=== PATIENT | female | born 1985 | race Hispanic/Latino ===

== ENCOUNTER 2019-11-10 09:55 | Emergency (ER) | payer OTHER | END 2019-11-10 13:04 | disposition home or self-care (01) | LOC: EDH 09:55 | DX: S16.1XXA Strain of muscle, fascia and tendon at neck level, initial encounter (principal); S29.012A Strain of muscle and tendon of back wall of thorax, initial encounter; J45.909 Unspecified asthma, uncomplicated; Z88.1 Allergy status to other antibiotic agents; V49.49XA Driver injured in collision with other motor vehicles in traffic accident, initial encounter; Y93.89 Activity, other specified; Y92.89 Other specified places as the place of occurrence of the external cause; Y99.8 Other external cause status | CPT/HCPCS: 72040; 81025; 93005 ==

== ENCOUNTER 2021-05-06 11:55 | Emergency (ER) | payer OTHER ==
[~2021-05-06] VITALS: Ht 160 cm; Wt 92.1 kg
[2021-05-06 11:59] VITALS: BP 144/81
[2021-05-06 12:21] LABS: BASOPHILS % (AUTO) 0.3 % (0.0-5.0); EOSINOPHILS % (AUTO) 0.8 % (0.0-8.0); HEMATOCRIT 39.2 % (36-48); LYMPHOCYTES % (AUTO) 28.6 % (21.0-51.0); MEAN CORPUSCULAR HEMOGLOBIN 31.6 pg (27.0-33.0); MEAN CORPUSCULAR HGB CONC 34.7 g/dL (32.0-36.0); MEAN CORPUSCULAR VOLUME 91.2 fL (79-99); NEUTROPHILS % (AUTO) 65.1 % (40.0-77.0); PLATELET COUNT (AUTO) 239 K/uL (130-400); RED CELL DISTRIBUTION WIDTH 11.5 % (11.0-15.5); WHITE BLOOD COUNT (AUTO) 9.1 K/uL (4.8-10.8)
[2021-05-06 12:33] LABS: CREATININE 0.9 mg/dL (0.5-1.5)
[2021-05-06 12:34] LABS: INR 0.98 (0.85-1.15); PROTHROMBIN TIME 10.7 SEC (9.6-11.6)
[2021-05-06 12:36] LABS: PARTIAL THROMBOPLASTIN TIME 24.3 SEC (26.3-35.5)
[2021-05-06 12:37] LABS: ALBUMIN 3.9 g/dL (3.5-5.0); BILIRUBIN,TOTAL 0.4 mg/dL (0.2-1.0); TOTAL PROTEIN, SERUM 7.6 g/dL (6.0-8.3)
[2021-05-06 12:44] LABS: B-TYPE NATRIURETIC PEPTIDE 23 pg/mL (0-100)
[2021-05-06 14:55] LABS: APPEARANCE,URINE Clear (CLEAR); BILIRUBIN,URINE Negative (NEGATIVE); COLOR,URINE Yellow (YELLOW); GLUCOSE, URINE (UA) Negative (NEGATIVE); KETONES,URINE Negative (NEGATIVE); LEUKOCYTE ESTERASE ,URINE Negative (NEGATIVE); NITRATE,URINE Negative (NEGATIVE); OCCULT BLOOD,URINE Negative (NEGATIVE); PH,URINE 6.5 (5.0-8.0); PROTEIN,URINE Negative (NEGATIVE)
[2021-05-06] MEDS ORDERED: CYCLOBENZAPRINE HCL 10 MG TABLET PO ONE (15:00)
[2021-05-06] MEDS ORDERED: KETOROLAC 60 MG VIAL (30MG/ML) IM ONE (15:00)
[2021-05-06] MEDS ORDERED: MELO7.5T12 PO (15:30)
[2021-05-06] MEDS ORDERED: CYCL10 PO (15:30)
[2021-05-06] MEDS ORDERED: HYDR-3421 PO (15:38)
[2021-05-06] MEDS ORDERED: LORAZEPAM 1 MG TABLET PO ONE (16:00)
[2021-05-06 16:17] VITALS: BP 153/85
== END 2021-05-06 17:14 | disposition home or self-care (01) ==
LOC: EDH 11:55
DX: R07.89 Other chest pain (principal); M94.0 Chondrocostal junction syndrome [Tietze]; F41.9 Anxiety disorder, unspecified; J45.909 Unspecified asthma, uncomplicated; E11.9 Type 2 diabetes mellitus without complications; F43.10 Post-traumatic stress disorder, unspecified; E07.9 Disorder of thyroid, unspecified; Z88.1 Allergy status to other antibiotic agents; Z79.1 Long term (current) use of non-steroidal anti-inflammatories (NSAID)
CPT/HCPCS: 36415; 71045; 80053; 81003; 82550; 83880; 84484 ×2; 85025; 85610; 85730; 93005 ×2; 96372; 99285; J1885